=== PATIENT | male | born 1985 | race Caucasian/White ===

== ENCOUNTER → 2020-03-07 | Outpatient (CLI) | payer OTHER | LOC: LAB 11:43 | PROVIDERS: ATTEND Nurse Practitioner | DX: R05 Cough (principal); R50.9 Fever, unspecified; Z20.828 Contact with and (suspected) exposure to other viral communicable diseases ==

== ENCOUNTER 2021-08-22 07:32 | Emergency (ER) | payer OTHER ==
[~2021-08-22] VITALS: Ht 180.3 cm; Wt 79.4 kg
[2021-08-22 07:36] VITALS: BP 134/87
== END 2021-08-22 08:25 | disposition home or self-care (01) ==
LOC: ER 07:32
DX: U07.1 COVID-19 (principal)